=== PATIENT | female | born 1995 | race African-American/Black ===

== ENCOUNTER 2017-07-03 20:54 | Emergency (ER) | payer SELFPAY ==
[2017-07-03] MEDS ORDERED: MONOTAB PO (23:40)
[2017-07-03 23:45] VITALS: BP 118/66; PULSE 80; RESP 14; O2SAT 98
--- NOTE | 2017-07-03 23:52 | PD ---
HPI Chief Complaint: Flank/Kidney Pain Time Seen by Provider: 23:49 Travel History International Travel<30 days: No Contact w/Intl Traveler<30days: No Traveled to known affect area: No History of Present Illness HPI 22-year-old female presents to the emergency department complaint of right flank pain. Symptoms have been present for 4 days. Patient has history of recurrent urinary tract infections and kidney infection in the past. Patient denies fever chills nausea vomiting dysuria frequency urgency or hematuria. Patient's last menstrual period was June 14 normal for her and denies . Patient is on control pills. Patient had no vaginal discharge or vaginal bleeding or fluid leak and no pelvic pain. Patient also has had no recent respiratory illness. Patient denies any trauma or injury. Due to persistent discomfort decided to come to the emergency room for evaluation. Present discomfort is 4/10 intensity. PFSH Past Medical History Narrative Medical UTI, pyelonephritis; no tobacco use; nursing notes reviewed Medical History: Denies Significant Hx Diminished Hearing: No Immunizations Current: Yes Tetanus Vaccination: Unknown Influenza Vaccination: No ?: Not LMP: 06/14/17 Menopausal: No Past Surgical History Surgical History: No Previous Surgery Social History Alcohol Use: No Tobacco Use: No Substance Use: No Allergies-Medications (Allergen,Severity, Reaction): Coded Allergies: No Known Allergies (Verified Adverse Reaction, Unknown, 07/03/17) Reported Meds & Prescriptions Reported Meds & Active Scripts Active Reported Mononessa (Norgestimate-Ethinyl Estradiol) 0.25-35 Mg-Mcg Tab 1 Tab PO DAILY Review of Systems Except as stated in HPI: all other systems reviewed are Neg Physical Exam Narrative GENERAL: Well-developed well-nourished female no acute distress no respiratory distress SKIN: Warm and dry. HEAD: Normocephalic. EYES: No scleral icterus. No injection or drainage. NECK: Supple, trachea midline. No JVD or lymphadenopathy. CARDIOVASCULAR: Regular rate and rhythm without murmurs, gallops, or rubs. RESPIRATORY: Breath sounds equal bilaterally. No accessory muscle use. GASTROINTESTINAL: Abdomen soft, non-tender, nondistended. MUSCULOSKELETAL: No cyanosis, or edema. BACK: Nontender without obvious deformity. Mild reproducible right-sided CVA tenderness. Data Data Last Documented VS Vital Signs Date Time Temp Pulse Resp B/P (MAP) Pulse Ox O2 Delivery O2 Flow Rate FiO2 07/03/17 23:45 80 14 118/66 (83) 98 Room Air Orders Orders Ed Urine Pregnancytest Poc (07/03/17 23:49) Urinalysis - C+S If Indicated (07/03/17 23:49) Labs Laboratory Tests Test 07/03/17 23:35 Urine Collection Type CLEAN CATCH Urine Color YELLOW Urine Turbidity SL CLOUDY Urine pH 5.5 Urine Specific [place] 1.020 Urine Protein NEG mg/dL Urine Glucose (UA) NEG mg/dL Urine Ketones 15 mg/dL Urine Occult Blood NEG Urine Nitrite NEG Urine Bilirubin NEG Urine Urobilinogen 0.2 MG/DL Urine Leukocyte Esterase SMALL Urine WBC 3-5 /hpf Urine Squamous Epithelial Cells 0-5 /hpf Urine Amorphous Sediment SMALL Urine Bacteria OCC /hpf Urine Mucus MOD /lpf Microscopic Urinalysis Comment CULT NOT INDICATED MDM Medical Decision Making Medical Screen Exam Complete: Yes Emergency Medical Condition: Yes Medical Record Reviewed: Yes Interpretation(s) [id number] hCG: Negative Urinalysis: Few bacteria and leukocyte esterase Differential Diagnosis UTI, pyelonephritis, obstructive uropathy, biliary colic, Narrative Course Specimens collected and sent for resulting [id number]-vy-bdlk hCG is negative Patient informed urinalysis findings and states typical of her urinary tract infection again tender to palpation no pleuritic pain no shortness of breath no injury no midline tenderness. Patient will be given ibuprofen and Macrobid culture will be obtained. Patient is encouraged to follow-up with her primary care provider return the emergency department for any concerns or change in condition. 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
[2017-07-03 23:59] LABS: BILIRUBIN, URINE NEG (NEG); BLOOD, URINE NEG (NEG); GLUCOSE,URINE NEG (NEG); KETONE, URINE 15 mg/dL (NEG); NITRITE,URINE NEG (NEG); PH, URINE 5.5 (5.0-8.5); URINE COLOR YELLOW (YELLW/STRAW); URINE LEUKOCYTE ESTERASE SMALL (NEG)
[2017-07-04 00:10] LABS: MUCUS URINE MOD /lpf (OCC); SQUAMOUS EPITHELIAL CELL URINE 0-5 /hpf (0-5)
[2017-07-04 00:13] LABS: AMORPHOUS SEDIMENT, URINE SMALL; BACTERIA, URINE OCC /hpf
[2017-07-04] MEDS ORDERED: IBUP-232 PO (00:29)
[2017-07-04] MEDS ORDERED: MACR100C2 PO (00:29)
[2017-07-04] MEDS ORDERED: NITROFURANTOIN MONOHYD MACROCR 100 MG CAP PO ONE (00:30)
[2017-07-04] MEDS ORDERED: IBUPROFEN 600 MG TAB PO ONE (00:30)
[2017-07-04 00:45] VITALS: BP 120/64; PULSE 76; RESP 14; O2SAT 98
== END 2017-07-04 01:00 | disposition home or self-care (01) ==
LOC: PHED 20:54
DX: R10.9 Unspecified abdominal pain (principal); Z87.440 Personal history of urinary (tract) infections
CPT/HCPCS: 81001; 84703; 99283